=== PATIENT | female | born 1955 | race Caucasian/White ===

== ENCOUNTER 2021-04-11 09:10 | Inpatient (IN) | payer OTHER, MEDICARE ==
[2021-04-11] MEDS ORDERED: Carvedilol 12.5 MG TAB ONE (09:48)
[2021-04-11 10:02] LABS: Hemoglobin 8.4 g/dL (12.0-15.5); Mean Corpuscular HGB CONC 29.9 g/dL (32.0-36.0); Mean Corpuscular Hemoglobin 35.3 pg (27.0-33.0); Mean Corpuscular Volume 118.1 fl (81.6-98.3); RBC Distribution Width 16.7 % (11.5-14.5); Red Blood Cell (RBC) Count 2.38 10x6/uL (3.90-5.03); White Blood Cell (WBC) Count 11.1 10x3/uL (3.5-10.5)
[2021-04-11 10:08] LABS: Mean Platelet Volume 10.9 fl (7.4-10.4); Platelet Count 50 10x3/uL (150-450)
[2021-04-11 10:09] LABS: MDiff Complete? YES
[2021-04-11 10:11] LABS: ALT (SGPT) 7 U/L (8-55); AST (SGOT) 26 U/L (5-34); Albumin 3.7 g/dL (3.4-4.8); Alkaline Phosphatase 105 U/L (40-110); Anion Gap 17 mmol/L (10-20); BUN (Urea Nitrogen) 36 mg/dL (9.8-20.1); Calc. Creatinine Clearance 0 mL/min (70-130); Calcium 8.6 mg/dL (7.8-10.44); Carbon Dioxide 19 mmol/L (23-31); Chloride 105 mmol/L (98-107); Globulin 1.7 g/dL (2.4-3.5); Glucose 105 mg/dL (80-115); Potassium 4.6 mmol/L (3.5-5.1); Protein, Total 5.4 g/dL (5.8-8.1); Sodium 136 mmol/L (136-145)
[2021-04-11 10:17] LABS: Band 7 % (5-11); Eosinophils 2 % (0-10); Lymphocytes 26 % (21-51); Monocytes 7 % (0-10); Neutrophil 56 % (42-75); Nucleated RBC 4 % (0); Reactive Lymphocytes 1 % (0-10)
[2021-04-11 10:20] LABS: Hypochromia SLIGHT = 6-15 cells (100X) (0-5/hpf); Macrocytosis SLIGHT = 6-15 cells (100X) (0-5/hpf); Polychromasia SLIGHT = 2-3 cells (100X) (0-2/hpf)
[2021-04-11 10:21] LABS: Ovalocytes SLIGHT = 2-5 cells (100X) (0-1/hpf); Platelet Morphology Comment Appears Decreased
[2021-04-11 12:48] LABS: Bilirubin Neg (Negative); Blood, Urine 150 (Negative); Clarity Cloudy (Clear); Glucose, Urine (Dipstick) Normal (Negative); Ketone, Urine Negative (Negative); Leukocyte 500 (Negative); Nitrite Negative (Negative); Protein, Urine (Dipstick) 100 mg/dl (Neg-Trace); Specific Gravity, Urine 1.015 (1.002-1.036); Urobilinogen Normal mg/dL (Less than 2)
[2021-04-11 13:09] LABS: Bacteria/HPF 4+ HPF (None Seen); Squamous Epithelial 0-3 HPF (0-3); Triple Phosphate Crystal Rare HPF (None Seen); WBC/HPF 0-3 HPF (0-3)
[2021-04-11 13:10] LABS: Mucous/LPF Rare LPF (<2+)
[2021-04-11 15:15] LABS: SARS-CoV-2 NAA Rapid Test Not Detected (NotDetected)
[2021-04-11] MEDS ORDERED: Acetaminophen 650 MG Suppository PR PRN (17:22)
[2021-04-11] MEDS ORDERED: Insulin Regular 300 UNITS/3 ML VIAL SC PRN ×2 (17:39)
[2021-04-11] MEDS ORDERED: Dextrose 5% in Water 1,000 ML IV PRN (17:39)
[2021-04-11] MEDS ORDERED: Dextrose 50% Abboject 50 ML SYRINGE SLOW IVP PRN (17:39)
[2021-04-11 19:21] LABS: Iron 83 ug/dL (50-170); Iron Binding Capacity, Total 196 mcg/dL (265-497)
[2021-04-12 00:57] VITALS: BMI 41.5
[2021-04-12] MEDS ORDERED: FLU VACC QS2021-22(65YR UP)/PF 240 MCG/0.7 ML SYRINGE IM ONE (01:15)
[2021-04-12] MEDS: Acetaminophen 325 MG TAB PO PRN ×2 (01:27→14:19)
[2021-04-12] MEDS: Carvedilol 6.25 MG TAB PO SCH ×3 (01:28→20:04)
[2021-04-12] MEDS: Sodium Chloride 0.9% 1,000 ML IV SCH ×4 (01:37→23:08)
[2021-04-12 05:26] LABS: Hemoglobin 7.1 g/dL (12.0-15.5); Mean Corpuscular HGB CONC 29.8 g/dL (32.0-36.0); Mean Corpuscular Hemoglobin 35.5 pg (27.0-33.0); Mean Platelet Volume 11.5 fl (7.4-10.4); Platelet Count 37 10x3/uL (150-450); RBC Distribution Width 16.6 % (11.5-14.5); White Blood Cell (WBC) Count 14.1 10x3/uL (3.5-10.5)
[2021-04-12 05:36] LABS: Anion Gap 18 mmol/L (10-20); BUN (Urea Nitrogen) 40 mg/dL (9.8-20.1); Calc. Creatinine Clearance 39 mL/min (70-130); Calcium 7.9 mg/dL (7.8-10.44); Carbon Dioxide 15 mmol/L (23-31); Chloride 109 mmol/L (98-107); Glucose 83 mg/dL (80-115); Potassium 4.7 mmol/L (3.5-5.1); Sodium 137 mmol/L (136-145)
[2021-04-12] MEDS: Thyroid 60 MG TAB PO SCH (06:26)
[2021-04-12 06:53] LABS: MDiff Complete? YES
[2021-04-12 06:57] LABS: Lymphocytes 39 % (21-51); Monocytes 4 % (0-10); Neutrophil 57 % (42-75); Nucleated RBC 2 % (0)
[2021-04-12 06:59] LABS: Hypochromia SLIGHT = 6-15 cells (100X) (0-5/hpf)
[2021-04-12 07:01] LABS: Macrocytosis SLIGHT = 6-15 cells (100X) (0-5/hpf); Platelet Morphology Comment Appears Decreased; Polychromasia SLIGHT = 2-3 cells (100X) (0-2/hpf)
[2021-04-12] MEDS ORDERED: Furosemide 40 MG TAB PO SCH (09:00)
[2021-04-12 12:25] LABS: Reflex for Review?? YES
[2021-04-12 12:52] LABS: MONO NEGATIVE CONTROL ZONE White (Negative) (White); MONO POSITIVE CONTROL Pink Line (Positive) (PINK/RED); Mononucleosis NEGATIVE (NEGATIVE)
[2021-04-12] MEDS ORDERED: cloNIDine 0.2mg/24 Hour PATCH TD SCH (13:00)
[2021-04-12 13:57] LABS: Lactic Acid 4.8 mmol/L (0.5-2.2)
[2021-04-12] MEDS ORDERED: Furosemide 20 MG TAB PO SCH (14:00)
[2021-04-12] MEDS ORDERED: Famotidine 20 MG TAB PO SCH (23:00)
[2021-04-12] MEDS ORDERED: Mag-Al Plus 1200 MG/1200 MG/120 MG/30 ML UDCUP PO SCH (23:00)
[2021-04-13 05:08] LABS: Anion Gap 19 mmol/L (10-20); BUN (Urea Nitrogen) 45 mg/dL (9.8-20.1); Calc. Creatinine Clearance 35 mL/min (70-130); Calcium 7.7 mg/dL (7.8-10.44); Carbon Dioxide 13 mmol/L (23-31); Chloride 108 mmol/L (98-107); Glucose 138 mg/dL (80-115); Potassium 4.9 mmol/L (3.5-5.1); Sodium 135 mmol/L (136-145)
[2021-04-13 05:17] LABS: Hemoglobin 8.2 g/dL (12.0-15.5); Mean Corpuscular HGB CONC 30.8 g/dL (32.0-36.0); Mean Corpuscular Hemoglobin 35.2 pg (27.0-33.0); Mean Corpuscular Volume 114.2 fl (81.6-98.3); Mean Platelet Volume 11.2 fl (7.4-10.4); Platelet Count 34 10x3/uL (150-450); RBC Distribution Width 18.6 % (11.5-14.5); Red Blood Cell (RBC) Count 2.33 10x6/uL (3.90-5.03); White Blood Cell (WBC) Count 14.4 10x3/uL (3.5-10.5)
[2021-04-13] MEDS: Sodium Chloride 0.9% 1,000 ML IV SCH (05:23)
[2021-04-13] MEDS: Thyroid 60 MG TAB PO SCH (05:24)
[2021-04-13 06:01] LABS: MDiff Complete? YES
[2021-04-13 06:02] LABS: Platelet Morphology Comment Appears Decreased
[2021-04-13 06:08] LABS: Band 2 % (5-11); Lymphocytes 18 % (21-51); Monocytes 11 % (0-10); Neutrophil 69 % (42-75); Nucleated RBC 4 % (0)
[2021-04-13 06:09] LABS: Macrocytosis SLIGHT = 6-15 cells (100X) (0-5/hpf); Polychromasia SLIGHT = 2-3 cells (100X) (0-2/hpf)
[2021-04-13 08:40] LABS: Actual Bicarbonate (HCO3a) 15.8 mEq/L (22-28); Base Excess (BEa) -9.9 mEq/L (-2.0 to +3.0); CO2 Tension 33.7 mmHg (35.0-45.0); Calcium, Ionized (arterial) 1.12 mmol/L (1.12-1.30); Carboxyhemoglobin (COHb) 0.6 gm% (0.0-3.0); Hemoglobin (Hb) 8.8 g/dL (12.0-16.0); O2 Tension (PaO2), arterial 65.3 mmHg (> 80.0); Potassium - ABG Lab 4.9 mmol/L (3.70-5.30); Puncture Site LRA; pH, Arterial 7.29 (7.35-7.45)
[2021-04-13 08:43] LABS: ALV-art Gradient 149.255 mmHg (0-20)
[2021-04-13 09:18] LABS: Magnesium 1.8 mg/dL (1.6-2.6); Phosphorus 3.3 mg/dL (2.3-4.7)
[2021-04-13] MEDS: Gabapentin 300 MG CAP PO SCH ×3 (09:20→21:26)
[2021-04-13] MEDS: Carvedilol 6.25 MG TAB PO SCH ×2 (09:21→21:26)
[2021-04-13] MEDS: Famotidine 20 MG TAB PO SCH (09:21)
[2021-04-13] MEDS: Folic Acid/Vit B Comp W-C PO SCH (09:21)
[2021-04-13] MEDS: Acetaminophen 325 MG TAB PO PRN (09:22)
[2021-04-13] MEDS ORDERED: diphenhydrAMINE 25 MG, Admixture Fee 1 EACH in Sodium Chloride 0.9% 50 ML IVPB PRN (12:57)
[2021-04-13] MEDS ORDERED: Furosemide 40 MG/4 ML VIAL SLOW IVP SCH (13:00)
[2021-04-13] MEDS ORDERED: Oxacillin 1 GM in Sodium Chloride 0.9% 100 ML IVPB SCH (14:00)
[2021-04-13] MEDS ORDERED: SODIUM CHLORIDE IVPB SCH (14:00)
[2021-04-13] MEDS ORDERED: OXACILLIN IVPB SCH (14:00)
[2021-04-13] MEDS ORDERED: ADMIXTURE FEE IVPB SCH (14:00)
[2021-04-13] MEDS: ADMIXTURE FEE IVPB SCH ×2 (14:47→21:25)
[2021-04-13] MEDS: OXACILLIN IVPB SCH ×2 (14:47→21:25)
[2021-04-13] MEDS: SODIUM CHLORIDE IVPB SCH ×2 (14:47→21:25)
[2021-04-13] MEDS ORDERED: cefTRIAXone\\ROCEPHIN 2 GM in Sodium Chloride 0.9% 100 ML IVPB SCH (15:00)
[2021-04-13 16:25] LABS: Lactic Acid 4.2 mmol/L (0.5-2.2)
[2021-04-13 16:26] LABS: Creatinine, Urine 136.2 mg/dL (47-110)
[2021-04-13] MEDS ORDERED: Senokot 8.6 MG TAB PO PRN (21:40)
[2021-04-13] MEDS ORDERED: Milk Of Magnesia 30 ML UDCUP PO SCH (21:45)
[2021-04-14] MEDS: OXACILLIN IVPB SCH ×3 (02:49→22:31)
[2021-04-14] MEDS: SODIUM CHLORIDE IVPB SCH ×3 (02:49→22:31)
[2021-04-14] MEDS: ADMIXTURE FEE IVPB SCH ×3 (02:49→22:31)
[2021-04-14 05:04] LABS: #Basophils 0.1 10x3/uL (0.0-0.2); #Eosinphils 0.1 10x3/uL (0.0-0.5); #Monocytes 1.5 10x3/uL (0.0-1.1); #Neutrophils 6.8 10x3/uL (1.5-8.4); %Basophils 0.5 % (0.0-2.0); %Lymphocytes 14.7 % (18.0-47.0); %Neutrophils 64.4 % (40.0-75.0); Hemoglobin 7.9 g/dL (12.0-15.5); Mean Corpuscular HGB CONC 31.6 g/dL (32.0-36.0); Mean Corpuscular Hemoglobin 35.9 pg (27.0-33.0); Mean Corpuscular Volume 113.6 fl (81.6-98.3); Mean Platelet Volume 11.7 fl (7.4-10.4); Platelet Count 30 10x3/uL (150-450); RBC Distribution Width 18.4 % (11.5-14.5); White Blood Cell (WBC) Count 10.5 10x3/uL (3.5-10.5)
[2021-04-14 05:09] LABS: ALT (SGPT) 6 U/L (8-55); AST (SGOT) 26 U/L (5-34); Albumin 2.6 g/dL (3.4-4.8); Alkaline Phosphatase 89 U/L (40-110); Anion Gap 18 mmol/L (10-20); BUN (Urea Nitrogen) 52 mg/dL (9.8-20.1); Bilirubin, Total 0.7 mg/dL (0.2-1.2); Calc. Creatinine Clearance 32 mL/min (70-130); Calcium 7.7 mg/dL (7.8-10.44); Carbon Dioxide 16 mmol/L (23-31); Chloride 106 mmol/L (98-107); Globulin 1.7 g/dL (2.4-3.5); Glucose 142 mg/dL (80-115); Potassium 5.5 mmol/L (3.5-5.1); Protein, Total 4.3 g/dL (5.8-8.1); Sodium 134 mmol/L (136-145)
[2021-04-14 05:25] LABS: MDiff Complete? YES; Manual Diff?? YES
[2021-04-14 06:02] LABS: Band 20 % (5-11); Eosinophils 2 % (0-10); Lymphocytes 9 % (21-51); Metamyelocyte 2 % (0-0); Monocytes 5 % (0-10); Neutrophil 55 % (42-75); Nucleated RBC 10 % (0); Reactive Lymphocytes 7 % (0-10)
[2021-04-14 06:04] LABS: Anisocytosis SLIGHT = 6-15 cells (100X) (0-5/hpf); Dohle Bodies SLIGHT; Hypochromia SLIGHT = 6-15 cells (100X) (0-5/hpf); Macrocytosis SLIGHT = 6-15 cells (100X) (0-5/hpf); Microcytosis SLIGHT = 6-15 cells (100X) (0-5/hpf); Polychromasia SLIGHT = 2-3 cells (100X) (0-2/hpf); Toxic Granulation SLIGHT; Vacuoles SLIGHT
[2021-04-14] MEDS: Thyroid 60 MG TAB PO SCH (07:04)
[2021-04-14] MEDS ORDERED: Dextrose 50% Abboject 50 ML SYRINGE SLOW IVP PRN (07:44)
[2021-04-14] MEDS ORDERED: Sodium Chloride 0.9% 1,000 ML IV SCH ×2 (07:45→08:00)
[2021-04-14] MEDS ORDERED: Insulin Regular 300 UNITS/3 ML VIAL IVP SCH (08:00)
[2021-04-14] MEDS ORDERED: Calcium Gluconate 4.6 MEQ in Sodium Chloride 0.9% 100 ML IVPB SCH (08:00)
[2021-04-14] MEDS ORDERED: Sodium Chloride 0.9% 500 ML IV SCH (08:30)
[2021-04-14] MEDS: Folic Acid/Vit B Comp W-C PO SCH (08:34)
[2021-04-14] MEDS: Docusate 100 MG CAP PO SCH ×2 (08:34→22:35)
[2021-04-14] MEDS: Carvedilol 6.25 MG TAB PO SCH ×2 (08:34→22:37)
[2021-04-14] MEDS: Gabapentin 300 MG CAP PO SCH ×3 (08:34→22:35)
[2021-04-14] MEDS: Famotidine 20 MG TAB PO SCH (08:35)
[2021-04-14] MEDS: Sodium Chloride 0.9% 1,000 ML IV SCH ×3 (09:09→19:26)
[2021-04-14] MEDS ORDERED: Labetalol HCl 100 MG/20 ML VIAL SLOW IVP PRN (10:50)
[2021-04-14] MEDS ORDERED: hydrALAZINE 20 MG/ML VIAL SLOW IVP PRN (10:50)
[2021-04-14] MEDS ORDERED: Ondansetron ODT 4 MG TAB PO PRN (10:50)
[2021-04-14] MEDS ORDERED: Artificial Tear Sol 15 ML BOT EA EYE PRN (10:50)
[2021-04-14] MEDS ORDERED: Ondansetron PF 4 MG/2 ML Vial IVP PRN (10:50)
[2021-04-14 12:48] LABS: Prothrombin Time 11.5 sec (9.5-12.1)
[2021-04-14] MEDS ORDERED: cefTRIAXone\\ROCEPHIN 2 GM in Sodium Chloride 0.9% 100 ML IVPB SCH (14:00)
[2021-04-14 14:14] LABS: Anion Gap 17 mmol/L (10-20); BUN (Urea Nitrogen) 54 mg/dL (9.8-20.1); Calc. Creatinine Clearance 32 mL/min (70-130); Calcium 7.3 mg/dL (7.8-10.44); Carbon Dioxide 16 mmol/L (23-31); Chloride 107 mmol/L (98-107); Glucose 117 mg/dL (80-115); Potassium 5.2 mmol/L (3.5-5.1); Sodium 135 mmol/L (136-145)
[2021-04-15] MEDS: hydrALAZINE 25 MG TAB PO SCH ×3 (01:34→22:21)
[2021-04-15] MEDS: OXACILLIN IVPB SCH ×4 (02:36→22:19)
[2021-04-15] MEDS: ADMIXTURE FEE IVPB SCH ×4 (02:36→22:19)
[2021-04-15] MEDS: SODIUM CHLORIDE IVPB SCH ×4 (02:36→22:19)
[2021-04-15] MEDS: Sodium Chloride 0.9% 1,000 ML IV SCH (02:37)
[2021-04-15 04:39] LABS: Hemoglobin 7.6 g/dL (12.0-15.5); Mean Corpuscular HGB CONC 30.5 g/dL (32.0-36.0); Mean Corpuscular Volume 114.7 fl (81.6-98.3); Mean Platelet Volume 11.6 fl (7.4-10.4); Platelet Count 29 10x3/uL (150-450); RBC Distribution Width 18.2 % (11.5-14.5); Red Blood Cell (RBC) Count 2.17 10x6/uL (3.90-5.03); White Blood Cell (WBC) Count 10.7 10x3/uL (3.5-10.5)
[2021-04-15 04:44] LABS: ALT (SGPT) 6 U/L (8-55); AST (SGOT) 35 U/L (5-34); Albumin 2.4 g/dL (3.4-4.8); Alkaline Phosphatase 100 U/L (40-110); Anion Gap 17 mmol/L (10-20); BUN (Urea Nitrogen) 55 mg/dL (9.8-20.1); Bilirubin, Total 0.8 mg/dL (0.2-1.2); Calc. Creatinine Clearance 33 mL/min (70-130); Calcium 7.6 mg/dL (7.8-10.44); Carbon Dioxide 16 mmol/L (23-31); Chloride 107 mmol/L (98-107); Globulin 1.6 g/dL (2.4-3.5); Glucose 147 mg/dL (80-115); Potassium 4.8 mmol/L (3.5-5.1); Sodium 135 mmol/L (136-145)
[2021-04-15 06:15] LABS: Manual Diff?? YES
[2021-04-15 06:16] LABS: MDiff Complete? YES
[2021-04-15] MEDS: Thyroid 60 MG TAB PO SCH (06:16)
[2021-04-15 06:18] LABS: Band 14 % (5-11); Lymphocytes 11 % (21-51); Metamyelocyte 3 % (0-0); Monocytes 10 % (0-10); Myelocyte 1 % (0-0); Neutrophil 57 % (42-75); Nucleated RBC 14 % (0); Reactive Lymphocytes 4 % (0-10)
[2021-04-15 06:19] LABS: Platelet Morphology Comment Appears Decreased
[2021-04-15 06:20] LABS: Anisocytosis SLIGHT = 6-15 cells (100X) (0-5/hpf); Basophilic Stippling SLIGHT = 1-2 cells (100X) (None Seen); Hypochromia SLIGHT = 6-15 cells (100X) (0-5/hpf); Macrocytosis SLIGHT = 6-15 cells (100X) (0-5/hpf); Microcytosis SLIGHT = 6-15 cells (100X) (0-5/hpf); Polychromasia SLIGHT = 2-3 cells (100X) (0-2/hpf)
[2021-04-15] MEDS ORDERED: Lactated Ringer's 1,000 ML IV SCH (07:30)
[2021-04-15] MEDS: Albuterol Sulfate 2.5 mg/3 ml Neb NEB PRN ×2 (08:00→15:44)
[2021-04-15] MEDS: Carvedilol 6.25 MG TAB PO SCH ×2 (08:22→22:20)
[2021-04-15] MEDS: Docusate 100 MG CAP PO SCH ×2 (08:23→22:20)
[2021-04-15] MEDS: Folic Acid/Vit B Comp W-C PO SCH (08:23)
[2021-04-15] MEDS: Gabapentin 300 MG CAP PO SCH ×3 (08:23→22:20)
[2021-04-15] MEDS: Famotidine 20 MG TAB PO SCH (08:23)
[2021-04-15] MEDS: Acetaminophen 325 MG TAB PO PRN ×2 (09:57→14:45)
[2021-04-15 20:12] LABS: A/G Ratio 1.6 (0.7-1.7); Albumin 2.5 g/dL (2.9-4.4); Alpha 1 0.3 g/dL (0.0-0.4); Alpha 2 0.5 g/dL (0.4-1.0); Beta 0.5 g/dL (0.7-1.3); Gamma 0.3 g/dL (0.4-1.8); Globulin, Total 1.6 g/dL (2.2-3.9); M-Spike Not Observed g/dL (Not Observed); Protein Electrophoresis Intrp Note: (.)
[2021-04-16] MEDS: SODIUM CHLORIDE IVPB SCH ×4 (02:36→21:01)
[2021-04-16] MEDS: OXACILLIN IVPB SCH ×4 (02:36→21:01)
[2021-04-16] MEDS: ADMIXTURE FEE IVPB SCH ×4 (02:36→21:01)
[2021-04-16 04:43] LABS: ALT (SGPT) 6 U/L (8-55); AST (SGOT) 31 U/L (5-34); Albumin 2.4 g/dL (3.4-4.8); Alkaline Phosphatase 97 U/L (40-110); Anion Gap 17 mmol/L (10-20); BUN (Urea Nitrogen) 56 mg/dL (9.8-20.1); Bilirubin, Total 0.6 mg/dL (0.2-1.2); Calc. Creatinine Clearance 34 mL/min (70-130); Calcium 7.4 mg/dL (7.8-10.44); Carbon Dioxide 15 mmol/L (23-31); Chloride 108 mmol/L (98-107); Globulin 1.8 g/dL (2.4-3.5); Glucose 133 mg/dL (80-115); Potassium 4.6 mmol/L (3.5-5.1); Protein, Total 4.2 g/dL (5.8-8.1); Sodium 135 mmol/L (136-145)
[2021-04-16 05:08] LABS: #Basophils 0.1 10x3/uL (0.0-0.2); #Eosinphils 0.2 10x3/uL (0.0-0.5); #Monocytes 2.2 10x3/uL (0.0-1.1); #Neutrophils 5.7 10x3/uL (1.5-8.4); %Basophils 0.8 % (0.0-2.0); %Eosinophils 1.6 % (0.0-6.0); %Lymphocytes 14.5 % (18.0-47.0); %Monocytes 21.3 % (0.0-10.0); %Neutrophils 54.6 % (40.0-75.0); Hemoglobin 7.9 g/dL (12.0-15.5); Mean Corpuscular HGB CONC 30.9 g/dL (32.0-36.0); Mean Corpuscular Hemoglobin 35.7 pg (27.0-33.0); Mean Corpuscular Volume 115.8 fl (81.6-98.3); Mean Platelet Volume 11.9 fl (7.4-10.4); Platelet Count 27 10x3/uL (150-450); RBC Distribution Width 18.5 % (11.5-14.5); Red Blood Cell (RBC) Count 2.21 10x6/uL (3.90-5.03); White Blood Cell (WBC) Count 10.4 10x3/uL (3.5-10.5)
[2021-04-16] MEDS: Thyroid 60 MG TAB PO SCH (05:17)
[2021-04-16 05:59] LABS: Manual Diff?? YES
[2021-04-16 06:11] LABS: Band 7 % (5-11); Eosinophils 3 % (0-10); Lymphocytes 9 % (21-51); Metamyelocyte 2 % (0-0); Monocytes 8 % (0-10); Neutrophil 60 % (42-75); Nucleated RBC 6 % (0); Reactive Lymphocytes 11 % (0-10)
[2021-04-16 06:12] LABS: Platelet Morphology Comment Appears Decreased
[2021-04-16 06:15] LABS: Anisocytosis SLIGHT = 6-15 cells (100X) (0-5/hpf); Basophilic Stippling SLIGHT = 1-2 cells (100X) (None Seen); Hypochromia SLIGHT = 6-15 cells (100X) (0-5/hpf); Macrocytosis MODERATE=16-30 cells (100X) (0-5/hpf); Microcytosis SLIGHT = 6-15 cells (100X) (0-5/hpf); Polychromasia SLIGHT = 2-3 cells (100X) (0-2/hpf)
[2021-04-16 07:42] LABS: MDiff Complete? YES
[2021-04-16] MEDS: Gabapentin 300 MG CAP PO SCH ×3 (10:06→21:01)
[2021-04-16] MEDS: Famotidine 20 MG TAB PO SCH (10:06)
[2021-04-16] MEDS: Carvedilol 6.25 MG TAB PO SCH ×2 (10:06→21:02)
[2021-04-16] MEDS: hydrALAZINE 25 MG TAB PO SCH ×2 (10:06→21:03)
[2021-04-16] MEDS: Docusate 100 MG CAP PO SCH ×2 (10:06→21:01)
[2021-04-16] MEDS: Folic Acid/Vit B Comp W-C PO SCH (10:19)
[2021-04-16] MEDS ORDERED: Fentanyl 100 MCG/2 ML VIAL ONE (11:30)
[2021-04-16] MEDS ORDERED: Lidocaine 1% PF 5 ML VIAL ONE (11:31)
[2021-04-16] MEDS ORDERED: Naloxone HCl 0.4 mg/ml Vial ONE (11:31)
[2021-04-16] MEDS ORDERED: Sodium Bicarbonate 2.5 MEQ/5 ML VIAL ONE (11:32)
[2021-04-16] MEDS ORDERED: Albuterol Sulfate 2.5 mg/3 ml Neb NEB PRN (12:09)
[2021-04-16 12:37] LABS: CMV DNA-PCR Test Negative (Negative)
[2021-04-16 14:50] LABS: Hep B Surf Ag Non-Reactive S/CO (NonReactive)
[2021-04-16 14:51] LABS: HBSAg Index 0.21 S/CO (0-0.99)
[2021-04-16] MEDS ORDERED: Tuberculin PPD 0.1 ML VIAL I-DERMAL SCH (16:15)
[2021-04-16] MEDS: Albuterol Sulfate 2.5 mg/3 ml Neb NEB SCH ×2 (16:46→19:00)
[2021-04-16] MEDS ORDERED: Lidocaine 1% (PF) 30 ML VIAL FS SCH (17:00)
[2021-04-16] MEDS: Acetaminophen 325 MG TAB PO PRN (17:32)
[2021-04-16 20:40] LABS: HBSAB Concentration Less than 8.00 mIU/mL; Hep B Core Total Ab Non-Reactive (NonReactive); Hep B Core Total Index 0.07 S/CO (0-0.79); Hep B Surf AB Non-Reactive (NonReactive); Hep C IgG Ab Non-Reactive (NonReactive); Hep C Index 0.04 S/CO (0-0.79)
[2021-04-16 22:38] LABS: Hemoglobin 8.1 g/dL (12.0-15.5); Platelet Count 36 10x3/uL (150-450)
[2021-04-17] MEDS: ADMIXTURE FEE IVPB SCH ×4 (02:58→21:14)
[2021-04-17] MEDS: OXACILLIN IVPB SCH ×4 (02:58→21:14)
[2021-04-17] MEDS: SODIUM CHLORIDE IVPB SCH ×4 (02:58→21:14)
[2021-04-17] MEDS: Albuterol Sulfate 2.5 mg/3 ml Neb NEB SCH ×4 (04:20→18:45)
[2021-04-17 04:34] LABS: Mean Corpuscular Volume 116.2 fl (81.6-98.3); Mean Platelet Volume 11.7 fl (7.4-10.4); Platelet Count 32 10x3/uL (150-450); RBC Distribution Width 18.3 % (11.5-14.5); Red Blood Cell (RBC) Count 2.22 10x6/uL (3.90-5.03); White Blood Cell (WBC) Count 9.4 10x3/uL (3.5-10.5)
[2021-04-17 04:51] LABS: ALT (SGPT) 7 U/L (8-55); AST (SGOT) 35 U/L (5-34); Albumin 2.5 g/dL (3.4-4.8); Alkaline Phosphatase 102 U/L (40-110); Anion Gap 15 mmol/L (10-20); BUN (Urea Nitrogen) 47 mg/dL (9.8-20.1); Bilirubin, Total 0.8 mg/dL (0.2-1.2); Calc. Creatinine Clearance 40 mL/min (70-130); Calcium 7.7 mg/dL (7.8-10.44); Carbon Dioxide 18 mmol/L (23-31); Chloride 106 mmol/L (98-107); Globulin 1.8 g/dL (2.4-3.5); Glucose 125 mg/dL (80-115); Potassium 4.4 mmol/L (3.5-5.1); Protein, Total 4.3 g/dL (5.8-8.1); Sodium 135 mmol/L (136-145)
[2021-04-17 05:39] LABS: MDiff Complete? YES
[2021-04-17 05:45] LABS: Band 1 % (5-11); Eosinophils 3 % (0-10); Lymphocytes 15 % (21-51); Monocytes 20 % (0-10); Neutrophil 59 % (42-75); Nucleated RBC 5 % (0); Reactive Lymphocytes 2 % (0-10)
[2021-04-17] MEDS: Thyroid 60 MG TAB PO SCH (05:53)
[2021-04-17] MEDS: Docusate 100 MG CAP PO SCH ×2 (08:37→21:14)
[2021-04-17] MEDS: Famotidine 20 MG TAB PO SCH (08:37)
[2021-04-17] MEDS: Folic Acid/Vit B Comp W-C PO SCH (08:37)
[2021-04-17] MEDS: Gabapentin 300 MG CAP PO SCH ×3 (08:38→21:15)
[2021-04-17] MEDS: hydrALAZINE 25 MG TAB PO SCH ×2 (08:38→21:17)
[2021-04-17] MEDS: Carvedilol 6.25 MG TAB PO SCH ×2 (16:40→21:16)
[2021-04-17] MEDS: Acetaminophen 325 MG TAB PO PRN (16:41)
[2021-04-18] MEDS: Albuterol Sulfate 2.5 mg/3 ml Neb NEB SCH ×3 (01:00→14:01)
[2021-04-18] MEDS: ADMIXTURE FEE IVPB SCH ×3 (03:04→14:01)
[2021-04-18] MEDS: SODIUM CHLORIDE IVPB SCH ×3 (03:04→14:01)
[2021-04-18] MEDS: OXACILLIN IVPB SCH ×3 (03:04→14:01)
[2021-04-18 05:37] LABS: ALT (SGPT) 8 U/L (8-55); AST (SGOT) 40 U/L (5-34); Albumin 2.6 g/dL (3.4-4.8); Alkaline Phosphatase 103 U/L (40-110); Anion Gap 16 mmol/L (10-20); BUN (Urea Nitrogen) 31 mg/dL (9.8-20.1); Bilirubin, Total 0.8 mg/dL (0.2-1.2); Calc. Creatinine Clearance 50 mL/min (70-130); Calcium 7.6 mg/dL (7.8-10.44); Carbon Dioxide 20 mmol/L (23-31); Chloride 103 mmol/L (98-107); Globulin 1.7 g/dL (2.4-3.5); Glucose 97 mg/dL (80-115); Potassium 3.9 mmol/L (3.5-5.1); Protein, Total 4.3 g/dL (5.8-8.1); Sodium 135 mmol/L (136-145)
[2021-04-18 05:45] LABS: Hemoglobin 8.7 g/dL (12.0-15.5); Mean Corpuscular HGB CONC 31.1 g/dL (32.0-36.0); Mean Corpuscular Hemoglobin 35.4 pg (27.0-33.0); Mean Corpuscular Volume 113.8 fl (81.6-98.3); Mean Platelet Volume 11.8 fl (7.4-10.4); Platelet Count 30 10x3/uL (150-450); Red Blood Cell (RBC) Count 2.46 10x6/uL (3.90-5.03); White Blood Cell (WBC) Count 10.6 10x3/uL (3.5-10.5)
[2021-04-18] MEDS: Thyroid 60 MG TAB PO SCH (05:55)
[2021-04-18 07:06] LABS: MDiff Complete? YES
[2021-04-18 07:17] LABS: Band 8 % (5-11); Lymphocytes 12 % (21-51); Metamyelocyte 2 % (0-0); Monocytes 15 % (0-10); Myelocyte 1 % (0-0); Neutrophil 58 % (42-75); Nucleated RBC 5 % (0); Reactive Lymphocytes 4 % (0-10)
[2021-04-18 07:19] LABS: Macrocytosis SLIGHT = 6-15 cells (100X) (0-5/hpf)
[2021-04-18 07:20] LABS: Hypochromia SLIGHT = 6-15 cells (100X) (0-5/hpf); Platelet Morphology Comment Appears Decreased; Polychromasia SLIGHT = 2-3 cells (100X) (0-2/hpf)
[2021-04-18] MEDS: Gabapentin 300 MG CAP PO SCH ×3 (08:37→20:58)
[2021-04-18] MEDS: Folic Acid/Vit B Comp W-C PO SCH (08:38)
[2021-04-18] MEDS: Carvedilol 6.25 MG TAB PO SCH ×2 (08:38→20:58)
[2021-04-18] MEDS: hydrALAZINE 25 MG TAB PO SCH ×2 (08:38→20:57)
[2021-04-18] MEDS: Docusate 100 MG CAP PO SCH ×2 (08:38→20:58)
[2021-04-18] MEDS: Famotidine 20 MG TAB PO SCH (08:38)
[2021-04-18] MEDS: Oxacillin 1 GM in Sodium Chloride 0.9% 100 ML IVPB SCH (21:00)
[2021-04-19] MEDS: Oxacillin 1 GM in Sodium Chloride 0.9% 100 ML IVPB SCH ×4 (01:50→20:50)
[2021-04-19 04:19] LABS: ALT (SGPT) 8 U/L (8-55); AST (SGOT) 52 U/L (5-34); Albumin 2.5 g/dL (3.4-4.8); Alkaline Phosphatase 99 U/L (40-110); Anion Gap 17 mmol/L (10-20); BUN (Urea Nitrogen) 37 mg/dL (9.8-20.1); Bilirubin, Total 0.7 mg/dL (0.2-1.2); Calc. Creatinine Clearance 41 mL/min (70-130); Calcium 7.5 mg/dL (7.8-10.44); Carbon Dioxide 19 mmol/L (23-31); Chloride 104 mmol/L (98-107); Globulin 1.7 g/dL (2.4-3.5); Glucose 107 mg/dL (80-115); Potassium 3.9 mmol/L (3.5-5.1); Protein, Total 4.2 g/dL (5.8-8.1); Sodium 136 mmol/L (136-145)
[2021-04-19 04:20] LABS: Hemoglobin 8.5 g/dL (12.0-15.5); Mean Corpuscular HGB CONC 31.8 g/dL (32.0-36.0); Mean Corpuscular Hemoglobin 36.8 pg (27.0-33.0); Mean Corpuscular Volume 115.6 fl (81.6-98.3); Mean Platelet Volume 11.6 fl (7.4-10.4); Platelet Count 30 10x3/uL (150-450); RBC Distribution Width 19.3 % (11.5-14.5); Red Blood Cell (RBC) Count 2.31 10x6/uL (3.90-5.03); White Blood Cell (WBC) Count 11.4 10x3/uL (3.5-10.5)
[2021-04-19 05:37] LABS: MDiff Complete? YES
[2021-04-19 05:43] LABS: Band 3 % (5-11); Lymphocytes 9 % (21-51); Metamyelocyte 3 % (0-0); Monocytes 20 % (0-10); Myelocyte 2 % (0-0); Neutrophil 57 % (42-75); Nucleated RBC 10 % (0); Reactive Lymphocytes 6 % (0-10)
[2021-04-19 05:44] LABS: Anisocytosis SLIGHT = 6-15 cells (100X) (0-5/hpf); Macrocytosis MODERATE=16-30 cells (100X) (0-5/hpf); Polychromasia SLIGHT = 2-3 cells (100X) (0-2/hpf); Schistocytes SLIGHT = 2-5 cells (100X) (0-1/hpf)
[2021-04-19 05:45] LABS: Platelet Morphology Comment Appears Decreased; Stomatocytes SLIGHT = 2-5 cells (100X) (0-1/hpf)
[2021-04-19] MEDS: Thyroid 60 MG TAB PO SCH (05:59)
[2021-04-19] MEDS: Gabapentin 300 MG CAP PO SCH ×3 (08:43→20:49)
[2021-04-19] MEDS: Carvedilol 6.25 MG TAB PO SCH ×2 (08:44→20:49)
[2021-04-19] MEDS: Docusate 100 MG CAP PO SCH ×2 (08:44→20:49)
[2021-04-19] MEDS: Folic Acid/Vit B Comp W-C PO SCH (08:44)
[2021-04-19] MEDS: Famotidine 20 MG TAB PO SCH (08:44)
[2021-04-19] MEDS: hydrALAZINE 25 MG TAB PO SCH ×2 (08:44→20:49)
[2021-04-19] MEDS ORDERED: Metoclopramide HCl 10 MG/2 ML VIAL IVP PRN (10:49)
[2021-04-20] MEDS: Oxacillin 1 GM in Sodium Chloride 0.9% 100 ML IVPB SCH ×4 (01:18→22:02)
[2021-04-20 05:13] LABS: Hemoglobin 8.7 g/dL (12.0-15.5); Mean Corpuscular HGB CONC 30.4 g/dL (32.0-36.0); Mean Corpuscular Volume 118.2 fl (81.6-98.3); Mean Platelet Volume 11.4 fl (7.4-10.4); Platelet Count 33 10x3/uL (150-450); RBC Distribution Width 19.2 % (11.5-14.5); Red Blood Cell (RBC) Count 2.42 10x6/uL (3.90-5.03); White Blood Cell (WBC) Count 15.8 10x3/uL (3.5-10.5)
[2021-04-20] MEDS: Thyroid 60 MG TAB PO SCH (05:15)
[2021-04-20 05:40] LABS: ALT (SGPT) 12 U/L (8-55); AST (SGOT) 94 U/L (5-34); Albumin 2.6 g/dL (3.4-4.8); Alkaline Phosphatase 99 U/L (40-110); Anion Gap 18 mmol/L (10-20); BUN (Urea Nitrogen) 29 mg/dL (9.8-20.1); Bilirubin, Total 0.7 mg/dL (0.2-1.2); Calc. Creatinine Clearance 40 mL/min (70-130); Calcium 7.8 mg/dL (7.8-10.44); Carbon Dioxide 20 mmol/L (23-31); Chloride 103 mmol/L (98-107); Globulin 1.8 g/dL (2.4-3.5); Glucose 96 mg/dL (80-115); Potassium 4.2 mmol/L (3.5-5.1); Protein, Total 4.4 g/dL (5.8-8.1); Sodium 137 mmol/L (136-145)
[2021-04-20 06:15] LABS: MDiff Complete? YES
[2021-04-20 06:16] LABS: Platelet Morphology Comment Appears Decreased
[2021-04-20 06:20] LABS: Band 19 % (5-11); Lymphocytes 14 % (21-51); Metamyelocyte 3 % (0-0); Monocytes 21 % (0-10); Myelocyte 1 % (0-0); Neutrophil 38 % (42-75); Nucleated RBC 9 % (0); Reactive Lymphocytes 4 % (0-10)
[2021-04-20 06:24] LABS: Macrocytosis MODERATE=16-30 cells (100X) (0-5/hpf); Stomatocytes MODERATE= 6-15 cells (100X) (0-1/hpf); Target Cells SLIGHT = 2-5 cells (100X) (0-1/hpf); Tear Drops SLIGHT = 2-5 cells (100X) (0-1/hpf)
[2021-04-20] MEDS: hydrALAZINE 25 MG TAB PO SCH ×2 (08:46→08:48)
[2021-04-20] MEDS: Famotidine 20 MG TAB PO SCH ×2 (08:46→08:48)
[2021-04-20] MEDS: Folic Acid/Vit B Comp W-C PO SCH ×2 (08:46→08:48)
[2021-04-20] MEDS: Gabapentin 300 MG CAP PO SCH ×4 (08:46→22:03)
[2021-04-20] MEDS: Carvedilol 6.25 MG TAB PO SCH ×2 (08:46→08:49)
[2021-04-20] MEDS: Docusate 100 MG CAP PO SCH ×2 (08:49→22:04)
[2021-04-20 14:47] LABS: Anion Gap 23 mmol/L (10-20); BUN (Urea Nitrogen) 34 mg/dL (9.8-20.1); Calc. Creatinine Clearance 34 mL/min (70-130); Calcium 7.9 mg/dL (7.8-10.44); Carbon Dioxide 15 mmol/L (23-31); Chloride 103 mmol/L (98-107); Glucose 152 mg/dL (80-115); Potassium 4.5 mmol/L (3.5-5.1); Sodium 136 mmol/L (136-145)
[2021-04-20 14:48] LABS: Actual Bicarbonate (HCO3a) 17.6 mEq/L (22-28); Base Excess (BEa) -10.2 mEq/L (-2.0 to +3.0); CO2 Tension 47.3 mmHg (35.0-45.0); Calcium, Ionized (arterial) 1.15 mmol/L (1.12-1.30); Hemoglobin (Hb) 10.5 g/dL (12.0-16.0); O2 Tension (PaO2), arterial 81.6 mmHg (> 80.0); Potassium - ABG Lab 4.3 mmol/L (3.70-5.30); Puncture Site LRA; pH, Arterial 7.19 (7.35-7.45)
[2021-04-20 14:49] LABS: ALV-art Gradient 180.125 mmHg (0-20)
[2021-04-20 15:10] LABS: CKMB 1.1 ng/mL (0-6.6)
[2021-04-20 18:05] LABS: Troponin I 0.037 ng/mL (< 0.028)
[2021-04-21] MEDS ORDERED: Sodium Chloride 0.9% 500 ML IVPB SCH (01:30)
[2021-04-21] MEDS: Oxacillin 1 GM in Sodium Chloride 0.9% 100 ML IVPB SCH ×3 (02:00→14:53)
[2021-04-21 06:19] LABS: ALT (SGPT) 34 U/L (8-55); AST (SGOT) 200 U/L (5-34); Albumin 2.5 g/dL (3.4-4.8); Alkaline Phosphatase 108 U/L (40-110); Anion Gap 22 mmol/L (10-20); BUN (Urea Nitrogen) 41 mg/dL (9.8-20.1); Bilirubin, Total 0.7 mg/dL (0.2-1.2); Calc. Creatinine Clearance 28 mL/min (70-130); Calcium 7.9 mg/dL (7.8-10.44); Carbon Dioxide 15 mmol/L (23-31); Chloride 106 mmol/L (98-107); Globulin 1.9 g/dL (2.4-3.5); Glucose 104 mg/dL (80-115); Potassium 4.9 mmol/L (3.5-5.1); Protein, Total 4.4 g/dL (5.8-8.1); Sodium 138 mmol/L (136-145)
[2021-04-21] MEDS: Thyroid 60 MG TAB PO SCH (06:41)
[2021-04-21 07:00] LABS: Hemoglobin 8.8 g/dL (12.0-15.5); Mean Corpuscular HGB CONC 30.7 g/dL (32.0-36.0); Mean Corpuscular Hemoglobin 36.1 pg (27.0-33.0); Mean Corpuscular Volume 117.6 fl (81.6-98.3); Mean Platelet Volume 11.9 fl (7.4-10.4); Platelet Count 32 10x3/uL (150-450); RBC Distribution Width 19.9 % (11.5-14.5); Red Blood Cell (RBC) Count 2.44 10x6/uL (3.90-5.03); White Blood Cell (WBC) Count 18.3 10x3/uL (3.5-10.5)
[2021-04-21 07:01] LABS: MDiff Complete? YES
[2021-04-21 07:03] LABS: Band 18 % (5-11); Lymphocytes 16 % (21-51); Metamyelocyte 2 % (0-0); Monocytes 3 % (0-10); Myelocyte 5 % (0-0); Neutrophil 49 % (42-75); Nucleated RBC 20 % (0); Reactive Lymphocytes 2 % (0-10); Reflex for Review?? YES
[2021-04-21 07:04] LABS: Differential Comment Immature Cell(s)
[2021-04-21 07:06] LABS: Macrocytosis MODERATE=16-30 cells (100X) (0-5/hpf); Platelet Morphology Comment Appears Decreased; Polychromasia SLIGHT = 2-3 cells (100X) (0-2/hpf)
[2021-04-21] MEDS: Gabapentin 300 MG CAP PO SCH ×2 (09:07→14:53)
[2021-04-21] MEDS: Carvedilol 6.25 MG TAB PO SCH (09:07)
[2021-04-21] MEDS: hydrALAZINE 25 MG TAB PO SCH (09:07)
[2021-04-21] MEDS: Docusate 100 MG CAP PO SCH (09:07)
[2021-04-21 20:33] VITALS: BP 73/35; TEMP 100.1
[2021-04-21] MEDS ORDERED: Morphine 4 MG/ML VIAL SLOW IVP PRN (21:29)
[2021-04-21] MEDS ORDERED: Lorazepam 2 MG/ML VIAL SLOW IVP PRN (21:30)
[2021-04-21] MEDS ORDERED: Scopolamine 1.5 mg/72 hour Patch TD SCH (22:00)
[2021-04-22 10:39] LABS: Albumin-Ur 63.9 % (.); Alpha 1 - Ur 1.6 % (.); Alpha 2 - Ur 6.3 % (.); Gamma-Ur 14.2 % (.); M-Spike,% Not Observed % (Not Observed); Protein, Urine 65.5 mg/dL (Not Estab.)
== END 2021-04-22 | disposition expired | DRG 871 ==
LOC: CSHERS 09:10 → CSHERHOLD 15:35 → CSHTELE 22:17
PROVIDERS: ADMIT Family Medicine; ATTEND Hospitalist
PROC: 30233N1 Transfusion of Nonautologous Red Blood Cells into Peripheral Vein, Percutaneous Approach (ICD-10-PCS; 2021-04-12)
PROC: 3E03329 Introduction of Other Anti-infective into Peripheral Vein, Percutaneous Approach (ICD-10-PCS; 2021-04-12)
PROC: 30233R1 Transfusion of Nonautologous Platelets into Peripheral Vein, Percutaneous Approach (ICD-10-PCS; principal; 2021-04-16)
PROC: 06HY33Z Insertion of Infusion Device into Lower Vein, Percutaneous Approach (ICD-10-PCS; 2021-04-16)
PROC: 5A1D70Z Performance of Urinary Filtration, Intermittent, Less than 6 Hours Per Day (ICD-10-PCS; 2021-04-21)
DX: A41.01 Sepsis due to Methicillin susceptible Staphylococcus aureus (principal); J96.01 Acute respiratory failure with hypoxia; N18.6 End stage renal disease; I50.33 Acute on chronic diastolic (congestive) heart failure; N17.9 Acute kidney failure, unspecified; D61.818 Other pancytopenia; C56.9 Malignant neoplasm of unspecified ovary; C78.7 Secondary malignant neoplasm of liver and intrahepatic bile duct; E87.2 Acidosis; Z68.41 Body mass index [BMI] 40.0-44.9, adult; E87.1 Hypo-osmolality and hyponatremia; I13.2 Hypertensive heart and chronic kidney disease with heart failure and with stage 5 chronic kidney disease, or end stage renal disease; N39.0 Urinary tract infection, site not specified; N13.30 Unspecified hydronephrosis; Z66 Do not resuscitate; Z51.5 Encounter for palliative care; Z20.822 Contact with and (suspected) exposure to COVID-19; D63.1 Anemia in chronic kidney disease; I87.8 Other specified disorders of veins; E66.01 Morbid (severe) obesity due to excess calories; E53.8 Deficiency of other specified B group vitamins; E11.22 Type 2 diabetes mellitus with diabetic chronic kidney disease; E78.5 Hyperlipidemia, unspecified; E87.5 Hyperkalemia; E88.09 Other disorders of plasma-protein metabolism, not elsewhere classified; Z79.899 Other long term (current) drug therapy; Z90.710 Acquired absence of both cervix and uterus; Z98.84 Bariatric surgery status; Z88.1 Allergy status to other antibiotic agents; Z99.2 Dependence on renal dialysis; Z79.810 Long term (current) use of selective estrogen receptor modulators (SERMs); Z91.81 History of falling
CPT/HCPCS: 0240U; 36415; 36416; 36430; 36600; 70553; 71045; 74176; 76705; 76770; 80048; 80053; 81003; 81015; 82140; 82553; 82570; 82607; 82746; 82805; 83540; 83550; 83605; 83615; 83735; 83880; 84100; 84156; 84165; 84166; 84443; 84484; 85025; 85046; 85060; 85379; 85384; 85610; 85730; 86140; 86308; 86704; 86706; 86803; 86850; 86900; 86901; 87040; 87077; 87086; 87149; 87186; 87340; 87497; 90935; 93005; 93010; 93306; 93970; 94640; 94760; 94762; G0257; J0610; J0696; J1815; J1940; J1956; J2001; J2270; J2310; J2405; J2700; J3010; J3490; J7030; J7050; J7070; J7120; J7611; P9016; P9035